=== PATIENT | female | born 1980 | race Caucasian/White ===

== ENCOUNTER 2025-05-14 12:47 | Outpatient (RCR) | payer MEDICAID, SELFPAY | END 2025-06-03 23:59 | disposition home or self-care (01) | LOC: SCTC 12:47 | PROVIDERS: PCP Physician Assistant Medical; Referring Provider Physician Assistant Medical; Visit Provider Nurse Practitioner Family | DX: D50.9 Iron deficiency anemia, unspecified (principal); Z87.42 Personal history of other diseases of the female genital tract | CPT/HCPCS: 99213; G0463 ==